=== PATIENT | male | born 1970 | race Two or more races ===

== ENCOUNTER 2020-03-29 09:04 | Emergency (ER) | payer SELFPAY ==
[~2020-03-29] VITALS: Ht 160 cm; Wt 77.0 kg
[2020-03-29 09:06] VITALS: BP 116/79
[2020-03-29] MEDS ORDERED: IBUPROFEN 600MG TABLET PO ONE (10:00)
== END 2020-03-29 11:37 | disposition home or self-care (01) ==
LOC: EDBD 09:04 → ER 09:04
DX: J02.9 Acute pharyngitis, unspecified (principal); R05 Cough
CPT/HCPCS: 71045; 87804; 99284